=== PATIENT | male | born 1990 | race African-American/Black ===

== ENCOUNTER 2018-11-03 00:10 | Emergency (ER) | payer OTHER ==
[~2018-11-03] VITALS: Ht 170.2 cm; Wt 61.2 kg
[2018-11-03 00:21] VITALS: BP 119/78
[2018-11-03] MEDS: Lidocaine 1% Plain 30 ml INJ ONE (00:35)
--- NOTE | 2018-11-03 00:35 | Emergency Room Report ---
History of Present Illness General Chief Complaint: Laceration Source: Patient Present Illness HPI Is a 27-year-old male who is right-hand dominant. He presents with chief complaint of laceration to the right finger. This occurred late this evening. He was moving of age and put it down on the floor. When he did that he sustained a laceration to the right third finger. It was bleeding but stopped with pressure. Mild pain. Nothing made it better. Movement made it worse. No other injury. Allergies: Coded Allergies: No Known Allergies (Unverified , 11/03/18) Patient History Past Medical History: see triage record, old chart reviewed Past Surgical History: none Pertinent Family History: none Social History: Denies: smoking Immunizations: other Reviewed Nursing Documentation: PMH: Agreed; PSxH: Agreed Nursing Documentation-PMH Past Medical History: No Stated History Review of Systems Eye: Denies: eye pain, blurred vision ENT: Denies: ear pain, nose congestion, throat swelling Respiratory: Denies: cough, shortness of breath Cardiovascular: Denies: chest pain, palpitations Gastrointestinal: Denies: abdominal pain, diarrhea, nausea, vomiting Musculoskeletal: Denies: back pain, joint pain Skin: Denies: rash Neurological: Denies: headache, numbness Endocrine: Denies: increased thirst, increased urine Hematologic/Lymphatic: Denies: easy bruising All Other Systems: negative except mentioned in HPI Physical Exam Vital Signs Date Time Temp Pulse Resp B/P (MAP) Pulse Ox O2 Delivery O2 Flow Rate FiO2 11/03/18 00:15 98.1 60 18 119/78 99 vitals normal Sp02 EP Interpretation: reviewed, normal General Appearance: well appearing, no apparent distress, alert Head: normocephalic, atraumatic Eyes: bilateral eye PERRL, bilateral eye EOMI ENT: hearing grossly normal, normal pharynx Neck: full range of motion, supple, no meningismus Respiratory: chest non-tender, lungs clear, normal breath sounds Cardiovascular #1: regular rate, rhythm, no murmur Gastrointestinal: normal bowel sounds, non tender, no mass, no organomegaly, no bruit, non-distended Musculoskeletal: back normal, gait/station normal, normal range of motion, other - Right third finger: On the volar aspect of the proximal phalanx there is a 1 cm laceration. No foreign body. Full range of motion of MCP and DIP and PIP joint. No foreign body or tendon laceration. Neurologic: alert, oriented x3 Psychiatric: mood/affect normal Skin: warm/dry Procedures Laceration/Wound Repair Laceration/Wound Repair : Consent: Verbal Wound Location: upper extremity Wound's Depth, Shape: linear Wound Length (cm): 2 Wound Explored: clean Irrigated w/ Saline (ccs): 1000 Betadine Prep?: Yes Anesthesia: 1% Lidocaine Volume Anesthetic (ccs): 2 Wound Repaired With: sutures Suture Size/Type: 5:0, proline Number of Sutures: 3 Sterile Dressing Applied?: Yes Patient Tolerated: Well Complications: None Medical Decision Making Diagnostic Impression: Primary Impression: Laceration ER Course This patient presents with a finger laceration. No foreign body. No tendon laceration. We'll discharge home. Last Vital Signs Date Time Temp Pulse Resp B/P (MAP) Pulse Ox O2 Delivery O2 Flow Rate FiO2 11/03/18 00:21 98.1 18 119/78 99 11/03/18 00:15 60 Status: improved Disposition: HOME, SELF-CARE Condition: Stable Scripts Cephalexin* (KEFLEX*) 500 Mg Capsule 500 MG ORAL TID, #21 CAP Prov: Jose Bradford MD 11/03/18 Patient Instructions: Laceration Care, Adult Additional Instructions: Follow-up with workman's comp doctor in 2-3 days. Suture out in 7-10 days. Return if worse. Jose Bradford MD Nov 03, 2018 00:35
[2018-11-03] MEDS: Tetanus/Diptheria/Pertussis Vaccine 0.5ml Syr IM ONE (00:36)
[2018-11-03 00:51] VITALS: BP 115/73
[2018-11-03] MEDS ORDERED: CEPHALEXIN500 MG ORAL (00:51)
[2018-11-03 00:52] VITALS: BP 115/73
[2018-11-03] MEDS: Bacitracin Oint UD TOPIC ONE (00:55)
[2018-11-03] MEDS ORDERED: Bacitracin Oint UD TOPIC ONE (00:59)
== END 2018-11-03 01:12 | disposition home or self-care (01) ==
LOC: EMR 00:33
DX: S61.212A Laceration without foreign body of right middle finger without damage to nail, initial encounter (principal); Y92.89 Other specified places as the place of occurrence of the external cause; X58.XXXA Exposure to other specified factors, initial encounter; Z23 Encounter for immunization
CPT/HCPCS: 12001; 90471; 90715; 99282; J2001